=== PATIENT | female | born 1960 | race Caucasian/White ===

== ENCOUNTER 2021-12-06 09:47 | Emergency (ER) | payer OTHER ==
[~2021-12-06] VITALS: Ht 157.5 cm; Wt 116.8 kg
[2021-12-06] MEDS ORDERED: IBUPROFEN 400 MG TABLET. PO ONE (10:15)
--- NOTE | 2021-12-06 10:41 | PHYS DOC ---
Past Medical History Past Medical History: No Pertinent History Past Surgical History: Gastric Bypass, Hysterectomy, Knee Replacement (b/l), Tonsillectomy Additional Past Surgical Histo: shoulder debridement Smoking Status: Never Smoker Alcohol Use: Occasionally General Adult EDM: Chief Complaint: GROIN PAIN HPI: HPI: Patient is a 61 year old female who presents with left lower quadrant abdominal pain. Patient rates her pain at 6/10 at rest and 10/10 with movement or touching the area. It began yesterday and has worsened today. She reports a "pulling" sensation and a "knot" that is causing her pain. She denies all other complaints including fever, chills, generalized weakness, nausea, vomiting, diarrhea, constipation, dysuria, hematuria. Review of Systems: Review of Systems: ROS negative or noncontributory except as mentioned in HPI. Heart Score: C/O Chest Pain: No Current Medications: Current Medications Medications (Trade) Dose Ordered Sig/Leoncio Start Time Stop Time Status Last Admin Dose Admin Ibuprofen (Motrin) 800 mg 1X ONCE 12/06/21 10:15 12/06/21 10:16 DC Allergies: Allergies: Allergies Coded Allergies Type Severity Reaction Last Updated Verified Sulfa (Sulfonamide Antibiotics) Allergy Intermediate hives 12/06/21 Yes acetaminophen Allergy Intermediate 12/06/21 Yes clindamycin Allergy Intermediate 12/06/21 Yes morphine Allergy Intermediate hives 12/06/21 Yes Physical Exam: PE: Constitutional: Obese, no acute distress, non-toxic appearance. HENT: Normocephalic, atraumatic, bilateral external ears normal, nose normal. Eyes: EOMI, conjunctiva normal, no discharge. Neck: Normal range of motion, no stridor. Abdomen: Soft, less than 1 mm excoriation noted to the left side inferior pannus with tenderness to palpation (see below for skin exam), no masses, no pulsatile masses. Skin: As noted above, less than 1 mm superficial excoriation noted on the left side inferior pannus with exquisite tenderness to palpation, no surrounding erythema, no palpable fluctuance or induration, no palpable mass. Skin otherwise warm, dry, no erythema, no rash. Extremities: No cyanosis, no clubbing, ROM intact, no edema. Neurologic: Alert and oriented x4, normal motor function, normal sensory function, no focal deficits noted. Current Patient Data: Vital Signs: Vital Signs Date Time Temp Pulse Resp B/P (MAP) Pulse Ox O2 Delivery O2 Flow Rate FiO2 12/06/21 11:58 79 18 147/70 (95) 96 Room Air 12/06/21 11:28 76 18 131/63 (85) 97 Room Air 12/06/21 10:58 78 18 119/58 (78) 97 Room Air 12/06/21 10:28 91 18 141/102 (115) 97 Room Air 12/06/21 09:56 97.5 82 20 140/65 (90) 99 Room Air 97.5 Radiology/Procedures: Radiology/Procedures: PROCEDURE: ABDOMEN LTD US ABDOMEN LIMITED History:Reason: Painful "knot" inferior pannus LLQ; SCAN AREA OF PAIN/KNOT / Spl. Instructions: / History: Comparison: None Technique: Sonographic examination of the anterior abdominal wall Findings: No mass, cyst or abscess within the anterior abdominal wall in the left lower quadrant correspond with patient's palpable concern. Impression: 1. No ultrasound evidence of abnormality within the region the patient's palpable concern. Electronically signed by: Nuno Oneal DO (12/06/2021 11:37 AM) [id number] Course & Med Decision Making: Course & Med Decision Making Pertinent Labs and Imaging studies reviewed. (See chart for details) Patient is a 61-year-old female who presents with pain beneath and surrounding excoriation on the inferior pannus on the left side. She has no associated symptoms. Ultrasound obtained to evaluate for underlying skin abnormality. No evidence of acute abnormality on ultrasound obtained. Patient instructed to continue use of p.o. ibuprofen or naproxen for pain. Provided dermatology follow-up should she have persistent concern. Return precautions were provided patient understands and is agreeable to discharge plan. Dragon Disclaimer: [facility] Disclaimer: This electronic medical record was generated, in whole or in part, using a voice recognition dictation system. Departure Departure Impression: Primary Impression: Excoriation of abdomen Qualified Codes: S30.811A - Abrasion of abdominal wall, initial encounter Disposition: HOME / SELF CARE / HOMELESS Condition: STABLE Referrals: YAMIL VALLEJO MD (PCP) Patient Instructions: Abrasion, [id number] Additional Instructions: [facility] Hours: Dorie Benjamin PA-C Saturday - Saturday [id number] 8:00 am - 5:00 [place] [address] EMERGENCY DEPARTMENT GENERAL DISCHARGE INSTRUCTIONS Thank you for coming to [facility] Emergency Department (ED) today and trusting us with you care. We trust that you had a positive experience in our Emergency Department. If you wish to speak to the department management, you may call the director at . YOUR FOLLOW UP INSTRUCTIONS ARE FOLLOWS: 1. Follow up with your primary care doctor. If you do not have a primary doctor, please ask for a resource list of physicians or clinics that may be able to assist you with follow up care. 2. The emergency provider has interpreted your imaging studies, if any were ordered. The radiology imaging nurse also reviewed them. If there is a change in the findings, you will be notified in 48 hours when at all possible. 3. If a lab test or culture has been done, your results will be reviewed and you will be notified if you need a change in treatment. 4. Follow instructions verbalized to you and refer to the printouts if needed. ADDITIONAL INSTRUCTIONS AND INFORMATION: 1. Your care today has been supervised by a physician who is specially trained in emergency care. Many problems require more than one evaluation for a complete diagnosis and treatment. We recommend that you schedule your follow up appointment as recommended to ensure complete treatment of you illness or injury. If you are unable to obtain follow up care and continue to have a problem, or if your condition worsens, we recommend that you return to the ED. 2. We are not able to safely determine your condition over the phone nor are we able to give sound medical advice over the phone. For these safety reasons, if you call for medical advice we will ask you to come to the ED for further evaluation. 3. If you have any questions regarding these discharge instructions please call the ED at . SAFETY INFORMATION: In the interest of safety, wellness, and injury prevention; we encourage you to wear your seat belt, if you smoke; quite smoking, and we encourage family to use a protective helmet for bicycling and other sporting events that present an increased risk for head injury. IF YOUR SYMPTOMS WORSEN OR NEW SYMPTOMS DEVELOP, OR YOU HAVE CONCERNS ABOUT YOUR CONDITION; OR IF YOUR CONDITION WORSENS WHILE YOU ARE WAITING FOR YOUR FOLLOW UP APPOINTMENT; EITHER CONTACT YOUR PRIMARY CARE DOCTOR, THE PHYSICIAN WHOSE NAME AND NUMBER YOU WERE GIVEN, OR RETURN TO THE ED IMMEDIATELY. Scripts Ibuprofen (IBUPROFEN) 800 Mg Tablet 800 MG PO PRN Q6HRS PRN for INFLAMMATION, #20 TAB Prov: LANI SALAS 12/06/21 LANI SALAS Dec 06, 2021 10:41
--- NOTE | 2021-12-06 11:43 | RAD ---
US ABDOMEN LIMITED History:Reason: Painful "knot" inferior pannus LLQ; SCAN AREA OF PAIN/KNOT / Spl. Instructions: / Hi story: Comparison: None Technique: Sonographic examination of the anterior abdominal wall Findings: No mass, cyst or abscess within the anterior abdominal wall in the left lower quadrant correspond wit h patient's palpable concern. Impression: 1. No ultrasound evidence of abnormality within the region the patient's palpable concern. Electronically signed by: Nuno Oneal DO (12/06/2021 11:37 AM) [id number]
[2021-12-06] MEDS ORDERED: IBUP-1060 PO (11:57)
[2021-12-06 11:58] VITALS: BP 147/70
== END 2021-12-06 12:05 | disposition home or self-care (01) ==
LOC: ER 09:47
DX: S30.811A Abrasion of abdominal wall, initial encounter (principal); Z95.1 Presence of aortocoronary bypass graft; Z90.710 Acquired absence of both cervix and uterus; Z88.1 Allergy status to other antibiotic agents; Z88.2 Allergy status to sulfonamides; Z88.5 Allergy status to narcotic agent; Z88.6 Allergy status to analgesic agent; X50.9XXA Other and unspecified overexertion or strenuous movements or postures, initial encounter; Y93.89 Activity, other specified; Y92.89 Other specified places as the place of occurrence of the external cause; Y99.8 Other external cause status
CPT/HCPCS: 76705; 99285-25